=== PATIENT | male | born 1995 | race Caucasian/White ===

== ENCOUNTER 2017-03-19 00:24 | Emergency (ER) | payer BC ==
[~2017-03-19] VITALS: Ht 180.3 cm; Wt 67.5 kg
[2017-03-19 00:28] VITALS: Ht 180.3 cm; Wt 67.5 kg
[2017-03-19] MEDS ORDERED: SODIUM CHLORIDE 0.9% 1000ML 2,000 ML IV STA (01:08)
[2017-03-19] MEDS ORDERED: LORAZEPAM 2 MG/ML 1 ML VIAL IV STA (01:08)
[2017-03-19] MEDS ORDERED: AMPH20TA2 PO (01:34)
--- NOTE | 2017-03-19 01:34 | EMERGENCY ROOM VISIT NOTE ---
History Report prepared by Anais: Nikia Wilkerson Under the Supervision of: Dr. Faustino Alfaro M.D. First contact with patient: 00:55 Chief Complaint: OVERDOSE (INTENTIONAL) Stated Complaint: TOO MUCH AMPHETEMINE History of Present Illness The patient is a 21 year old male who presents to the Emergency Room with complaints of an episode of an overdose occurring prior to arrival. The patient states that he took 4 Adderall within the past 24 hours. He reports that he has been having dysfunctional control of taking it. He notes that he also has been taking Benzodiazepines, Hydrosine, and Ambien. He states that he came to the ED tonight because he thought he did permanent damage to his heart. The patient complains of his heart racing, feeling anxious, chest pain, difficulty formulating thoughts, eating/drinking abnormally, and not sleeping. He notes that he has a prescription for the Adderall from his PCP and has been on it for a while now. The patient denies trying to hurt himself, thoughts of hurting someone else, hallucinations and abdominal pain. He notes he took it all to try to get a lot of studying and school work done. Source of History: patient Onset: prior to arrival Position: other (global) Quality: other (global) Timing: other (episode) Associated Symptoms: + chest pain, No abdominal pain Note: The patient complains of his heart racing, feeling anxious, difficulty formulating thoughts, eating/drinking abnormally, and not sleeping. The patient denies thoughts of hurting himself, thoughts of hurting others, and hallucinations. Review of Systems See HPI for pertinent positives & negatives. A total of 10 systems reviewed and were otherwise negative. Past Medical & Surgical Medical Problems: (1) No Known Active Medical Problems Family History No pertinent family history Social History Smoking Status: Never Smoker Marital Status: single Housing Status: lives with roommate Occupation Status: [employer] student Current/Historical Medications Scheduled Amphetamine-Dextroamphetamine 20MG (Adderall 20MG), 20 MG PO BID Fluoxetine Hcl (Fluoxetine Hcl), 5 MG PO DAILY Fluoxetine Hcl (Fluoxetine Hcl), 60 MG PO DAILY Scheduled PRN Hydroxyzine Pamoate (Vistaril), 25-50 MG PO UD PRN for Anxiety Zolpidem Tartrate (Ambien), 10 MG PO HS PRN for Sleep [phenibut], 1 TAB PO DAILY PRN for Anxiety Allergies Coded Allergies: No Known Allergies (Unverified , 03/19/17) Physical Exam Vital Signs Date Time Temp Pulse Resp B/P (MAP) Pulse Ox O2 Delivery O2 Flow Rate FiO2 03/19/17 06:59 90 17 151/92 98 Room Air 03/19/17 06:49 101 03/19/17 06:00 91 20 136/82 99 Room Air 03/19/17 05:16 101 16 133/78 98 Room Air 03/19/17 04:00 103 20 122/77 99 Room Air 03/19/17 02:30 95 20 137/81 96 Room Air 03/19/17 01:29 98 16 148/102 100 Room Air 03/19/17 00:28 36.4 103 20 161/107 100 Room Air Physical Exam GENERAL: Patient is well appearing and in no acute distress. HEENT: No acute trauma, normocephalic atraumatic, mucous membranes are dry, no nasal congestion, no scleral icterus. Dilated pupils with rapid eye movements. NECK: No stridor, no adenopathy, no meningismus, trachea is midline. LUNGS: No dyspnea. Clear to auscultation and equal bilaterally. No wheeze, no rhonchi. HEART: Tachycardic rate and regular rhythm. No murmurs, rubs, gallops appreciated. ABDOMEN: Soft, nontender, bowel sounds positive, no masses appreciated, no peritonitis. BACK: No midline tenderness, no CVA tenderness EXTREMITIES: Normal motion all extremities, no cyanosis, no edema. Jittery hands. NEUROLOGIC: Alert and oriented, no acute motor or sensory deficits, no focal weakness, cranial nerves grossly intact. Difficulty focusing with tangential thought and periodically losing thought process. SKIN: No rash, no jaundice, no diaphoresis. Medical Decision & Procedures Laboratory Results 03/19/17 00:45 Red Blood Count 4.87, Mean Corpuscular Volume 85.0, Mean Corpuscular Hemoglobin 30.4, Mean Corpuscular Hemoglobin Concent 35.7, Mean Platelet Volume 10.7, Neutrophils (%) (Auto) 51.8, Lymphocytes (%) (Auto) 33.0, Monocytes (%) (Auto) 9.5, Eosinophils (%) (Auto) 5.0, Basophils (%) (Auto) 0.6, Neutrophils # (Auto) 3.55, Lymphocytes # (Auto) 2.26, Monocytes # (Auto) 0.65, Eosinophils # (Auto) 0.34, Basophils # (Auto) 0.04 03/19/17 01:24 Test 03/19/17 00:45 03/19/17 01:24 03/19/17 05:25 White Blood Count 6.85 K/uL (4.8-10.8) Red Blood Count 4.87 M/uL (4.7-6.1) Hemoglobin 14.8 g/dL (14.0-18.0) Hematocrit 41.4 % (42-52) Mean Corpuscular Volume 85.0 fL (80-100) Mean Corpuscular Hemoglobin 30.4 pg (25-34) Mean Corpuscular Hemoglobin Concent 35.7 g/dl (32-36) Platelet Count 233 K/uL (130-400) Mean Platelet Volume 10.7 fL (7.4-10.4) Neutrophils (%) (Auto) 51.8 % Lymphocytes (%) (Auto) 33.0 % Monocytes (%) (Auto) 9.5 % Eosinophils (%) (Auto) 5.0 % Basophils (%) (Auto) 0.6 % Neutrophils # (Auto) 3.55 K/uL (1.4-6.5) Lymphocytes # (Auto) 2.26 K/uL (1.2-3.4) Monocytes # (Auto) 0.65 K/uL (0.11-0.59) Eosinophils # (Auto) 0.34 K/uL (0-0.5) Basophils # (Auto) 0.04 K/uL (0-0.2) RDW Standard Deviation 38.6 fL (36.4-46.3) RDW Coefficient of Variation 12.6 % (11.5-14.5) Immature Granulocyte % (Auto) 0.1 % Immature Granulocyte # (Auto) 0.01 K/uL (0.00-0.02) Anion Gap 9.0 mmol/L (3-11) Est Creatinine Clear Calc Drug Dose 118.7 ml/min Estimated GFR () 133.8 Estimated GFR (Non- 115.4 BUN/Creatinine Ratio 9.9 (10-20) Calcium Level 9.3 mg/dl (8.5-10.1) Total Bilirubin 0.8 mg/dl (0.2-1) Aspartate Amino Transf (AST/SGOT) 14 U/L (15-37) Alanine Aminotransferase (ALT/SGPT) 29 U/L (12-78) Alkaline Phosphatase 77 U/L (45-117) Total Protein 8.1 gm/dl (6.4-8.2) Albumin 4.9 gm/dl (3.4-5.0) Globulin 3.2 gm/dl (2.5-4.0) Albumin/Globulin Ratio 1.5 (0.9-2) Thyroid Stimulating Hormone (TSH) 3.480 uIu/ml (0.300-4.500) Salicylates Level < 1.7 mg/dl (2.8-20) Acetaminophen Level < 2 ug/ml (10-30) Ethyl Alcohol mg/dL < 3.0 mg/dl (0-3) Urine Color YELLOW Urine Appearance CLEAR (CLEAR) Urine pH 7.5 (4.5-7.5) Urine Specific [place] 1.013 (1.000-1.030) Urine Protein NEG (NEG) Urine Glucose (UA) NEG (NEG) Urine Ketones NEG (NEG) Urine Occult Blood NEG (NEG) Urine Nitrite NEG (NEG) Urine Bilirubin NEG (NEG) Urine Urobilinogen NEG (NEG) Urine Leukocyte Esterase NEG (NEG) Urine WBC (Auto) 0 /hpf (0-5) Urine RBC (Auto) 0-4 /hpf (0-4) Urine Hyaline Casts (Auto) 0 /lpf (0-5) Urine Epithelial Cells (Auto) 0-5 /lpf (0-5) Urine Bacteria (Auto) NEG (NEG) Urine Opiates Screen NEG (NEG) Urine Methadone, Qualitative NEG (NEG) Urine Barbiturates NEG (NEG) Urine Phencyclidine (PCP) Level NEG (NEG) Ur Amphetamine/Methamphetamine POS (NEG) MDMA (Ecstasy) Screen NEG (NEG) Urine Benzodiazepines Screen NEG (NEG) Urine Cocaine Metabolite NEG (NEG) Urine Marijuana (THC) NEG (NEG) Laboratory results as reviewed by me. Medications Administered Medications (Trade) Dose Ordered Sig/Teressa Route Start Time Stop Time Status Last Admin Dose Admin Lorazepam (Ativan Inj) 2 mg NOW STAT IV 03/19/17 01:08 03/19/17 01:10 DC 03/19/17 01:08 2 MG Sodium Chloride 2,000 ml @ 999 mls/hr Q2H1M STAT IV 03/19/17 01:08 03/19/17 03:08 DC 03/19/17 01:24 999 MLS/HR Potassium Chloride (Klor-Con M10) 40 meq STK-MED ONCE .ROUTE 03/19/17 02:18 03/19/17 02:19 DC 03/19/17 02:22 40 MEQ Sodium Chloride 1,000 ml @ 125 mls/hr Q8H STAT IV 03/19/17 03:08 03/19/17 11:07 03/19/17 03:36 125 MLS/HR ECG Indication: toxicologic Rate (beats per minute): 88 Rhythm: normal sinus Findings: no acute ischemic change, no ectopy, other (QTc 464) ED Course 0101: The patient was evaluated in room B7. A complete history and physical exam was performed. 0108: Ordered NSS 2000 ml @ 999 mls/hr IV, Ativan Inj 2 mg IV. 0205: I reevaluated the patient and his heart rate has improved. He is much calmer and would like to talk to Mental Health. I discussed letting him sleep here now and talking to Mental Health in the morning. He and his friends at bedside are comfortable with this plan. 0212: Ordered Potassium Chloride 40 meq PO. 0630: The patient was signed out to Dr. Arguello awaiting mental health evaluation. Medical Decision Differential: Suicide Attempt, Mood Disorder, Poisoning, Medication OD, Narcotic OD, Tylenol OD, Salicylated OD, Prolonged QTc, Metabolic/Electrolyte imbalance, Trauma, Rhabdo, Infectious, amongst other pathologies entertained. 21 yr old male who clearly has an issues with polypharmacy, especially given that his finals are over yet he continues to dose himself with supratherapeutic Adderall and Vistaril as well as illegal benzos. Denies suicidal ideation or trying to harm self, but admits that he has taken it too far with his poly pharmacy. He is essentially in hyperactive state secondary to meth and likely this is compounded by anti-cholinergic effects meds as well. He is dehydrated, tachy, hypertension, tremulous and a bit tangential/forgetful with large pupils and rapid eye movements. Given Fluids/ativan with vast improvement in patient condition. EKG OK. Labs with hypoK which was started on repletion. Patient continues to deny suicidal ideation and does not meet inpatient criteria at this point at least from mental health standpoint. He does ask on several occasions to speak to mental health councillor and i think this is prudent. Plan will be to let him sleep/sober overnight and discuss with case management in morning. Patient has good insight in to his addiction issues and admits that his parents and he have been discussing inpatient drug rehab this xmas when he gets home to [facility]. [address] and evaluated him. Plan will be to monitor him until further evaluation, discussion with parents. Signed out to Dr Arguello awaiting further [facility] consultation with patient and his mother. Medication Reconcilliation Current Medication List: was personally reviewed by me Blood Pressure Screening Patient's blood pressure: Elevated blood pressure Blood pressure disposition: Elevated BP felt to be situational Impression Primary Impression: Polysubstance abuse Additional Impressions: Severe Adderall use disorder Hypokalemia Scribe Attestation The scribe's documentation has been prepared under my direction and personally reviewed by me in its entirety. I confirm that the note above accurately reflects all work, treatment, procedures, and medical decision making performed by me. Departure Information Dispostion Home / Self-Care Referrals No Doctor, Assigned (PCP) Patient Instructions Addiction Drug Abuse Tx, Hypokalemia Dc, [facility] Additional Instructions We are always here to help. Do not take any more medications. Your behavior has become very concerning. Keep well hydrated over the next few days. Problem Qualifiers
[2017-03-19] MEDS ORDERED: FLUO1TAB12 PO (01:36)
[2017-03-19] MEDS ORDERED: FLUO10TA3 PO (01:36)
[2017-03-19] MEDS ORDERED: HYDR25CA PO (01:37)
[2017-03-19] MEDS ORDERED: ZOLP10TA PO (01:38)
[2017-03-19] MEDS ORDERED: [UNRECOGNIZED DRUG - OTHER] PO (01:38)
[2017-03-19 01:41] LABS: HEMATOCRIT 41.4 % (42-52); MEAN CORPUSCULAR HEMOGLOBIN 30.4 pg (25-34); MEAN CORPUSCULAR HGB CONC 35.7 g/dl (32-36); MEAN PLATELET VOLUME 10.7 fL (7.4-10.4); MONO % 9.5 %; NEUT % 51.8 %; PLATELET COUNT 233 K/uL (130-400); RED BLOOD COUNT 4.87 M/uL (4.7-6.1); WHITE BLOOD COUNT 6.85 K/uL (4.8-10.8)
[2017-03-19 01:42] LABS: BUN/CREATININE RATIO 9.9 (10-20); CALCIUM 9.3 mg/dl (8.5-10.1); CREATININE 0.94 mg/dl (0.60-1.40); POTASSIUM 2.8 mmol/L (3.5-5.1)
[2017-03-19 01:42] LABS: BASO % 0.6 %; BASO ABS # 0.04 K/uL (0-0.2); COMPLETE YES; IG% 0.1 %; LYMPH ABS # 2.26 K/uL (1.2-3.4)
[2017-03-19 01:53] LABS: ACETAMINOPHEN < 2 ug/ml (10-30); ALB/GLOB RATIO 1.5 (0.9-2); THYROID STIMULATING HORMONE 3.48 uIu/ml (0.300-4.500)
[2017-03-19] MEDS ORDERED: POTASSIUM CHLORIDE 20 MEQ TABCR PO STA (02:12)
[2017-03-19] MEDS ORDERED: POTASSIUM CHLORIDE 10 MEQ TABCR ONE (02:18)
[2017-03-19] MEDS ORDERED: SODIUM CHLORIDE 0.9% 1000ML 1,000 ML IV STA (03:08)
[2017-03-19 05:42] LABS: URINE APPEARANCE CLEAR (CLEAR); URINE BILIRUBIN NEG (NEG); URINE COLOR YELLOW; URINE EPITHELIAL CELL AUTO 0-5 /lpf (0-5); URINE NITRITE NEG (NEG); URINE PH 7.5 (4.5-7.5); URINE SPECIFIC GRAVITY 1.013 (1.000-1.030); UROBILINOGEN NEG (NEG); ZZUR CULT IF INDIC CLEAN CATCH NO
[2017-03-19 05:44] LABS: MANUAL MICROSCOPIC REQUIRED? NO; REVIEW REQ? NO
[2017-03-19 06:08] LABS: BENZODIAZEPINE, URINE NEG (NEG); COCAINE,URINE NEG (NEG); PHENCYCLIDINE, URINE NEG (NEG)
[2017-03-19 10:45] VITALS: BP 125/88; PULSE 88; TEMP 36.4; O2SAT 100
== END 2017-03-19 10:47 | disposition home or self-care (01) ==
LOC: C.EDB 00:26
DX: F15.10 Other stimulant abuse, uncomplicated (principal); F19.10 Other psychoactive substance abuse, uncomplicated; E87.6 Hypokalemia; Z79.899 Other long term (current) drug therapy